=== PATIENT | female | born 1960 | race Caucasian/White ===

== ENCOUNTER 2022-07-17 09:23 | Outpatient (CLI) | payer BC, SELFPAY ==
--- NOTE | 2022-07-17 11:20 | W.ANESCHARGE ---
Anesthesia Charges Start Date/Time Anesthesia Start Date: 07/17/22 Anesthesia Start Time: 10:47 Stop Date/Time Anesthesia Stop Date: 07/17/22 Anesthesia Stop Time: 11:16 Summary Emergency: No
--- NOTE | 2022-07-17 13:59 | W.ANESCHARGE ---
Anesthesia Charges Start Date/Time Anesthesia Start Date: 07/17/22 Anesthesia Start Time: 10:47 Stop Date/Time Anesthesia Stop Date: 07/17/22 Anesthesia Stop Time: 11:16 Summary Emergency: No
== END 2022-07-17 09:24 | disposition home or self-care (01) ==
PROVIDERS: PCP Family Medicine; Visit Provider Internal Medicine Gastroenterology
DX: Z12.11 Encounter for screening for malignant neoplasm of colon (principal); Q43.8 Other specified congenital malformations of intestine
CPT/HCPCS: 00811; 00812; 45378; J2704